=== PATIENT | male | born 1990 | race Caucasian/White ===

== ENCOUNTER 2020-07-24 12:06 | Inpatient (IN) | payer MEDICAID, OTHER ==
[~2020-07-24] VITALS: Ht 177.8 cm; Wt 65.8 kg
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
[2020-07-24] MEDS ORDERED: LIDOCAINE-MPF 1%, 5ML ONE (12:29)
[2020-07-24] MEDS ORDERED: LORazepam 1MG TABLET PO ONE (12:30)
[2020-07-24] MEDS ORDERED: LIDOCAINE 1%, 10ML INFIL ONE (12:30)
[2020-07-24] MEDS ORDERED: DIPH,PERTUSS(ACELL),TET VAC/PF 0.5 ML IM-VACC ONE ×2 (12:30→12:31)
[2020-07-24] MEDS ORDERED: LORazepam 1MG TABLET ONE (12:30)
--- NOTE | 2020-07-24 13:05 | NUR ---
PT BACK FROM CT
--- NOTE | 2020-07-24 13:14 | NUR ---
ERPA AT BEDSIDE FOR SUTURES
[2020-07-24] MEDS ORDERED: SODIUM CHLORIDE 0.9% 1,000ML IVBOLUS ONE (13:30)
[2020-07-24] MEDS ORDERED: MORPHINE SULFATE 4 MG/ML, 1ML IVPush PRN (13:30)
[2020-07-24] MEDS ORDERED: PLEASE ENTER ALLERGIES MC SCH (13:30)
[2020-07-24] MEDS ORDERED: ONDANSETRON 2MG/ML, 2ML IVPush ONE (13:30)
[2020-07-24] MEDS ORDERED: ONDANSETRON 2MG/ML, 2ML ONE (13:31)
[2020-07-24] MEDS ORDERED: MORPHINE SULFATE 4 MG/ML, 1ML ONE (13:32)
--- NOTE | 2020-07-24 13:32 | NUR ---
HOLD ON SUTURES UNTIL DR ULLOA TO SEE PT
--- NOTE | 2020-07-24 13:58 | NUR ---
PT MEDICATED PER ORDER, TOLERATED WELL. FLUIDS INFUSING, LAW ENFORCEMENT AT BEDSIDE, SAFETY PRECAUTIONS IN PLACE.
--- NOTE | 2020-07-24 14:21 | NUR ---
XR AT BEDSIDE
[2020-07-24 14:32] LABS: BASOPHILS % (AUTO) 0 % (0-1); EOSINOPHILS % (AUTO) 0 % (1-7); LYMPHOCYTES % (AUTO) 8 % (22-44); MEAN CORPUSCULAR HEMOGLOBIN 31.4 pg (27.5-34.5); MEAN CORPUSCULAR HGB CONC 33.6 g/dL (33.2-36.2); MEAN PLATELET VOLUME 8.5 fL (7.4-10.4); MONOCYTES % (AUTO) 7 % (2-9); NEUTROPHILS % (AUTO) 86 % (42-75); PLATELET COUNT 213 x10^3/uL (130-400); RED BLOOD COUNT 4.73 x10^6/uL (4.38-5.82); RED CELL DISTRIBUTION WIDTH 14.8 % (9.4-14.8)
[2020-07-24 14:39] LABS: ALBUMIN 3.8 g/dL (3.4-5.0); ANION GAP 9 mmol/L (5-15); CALCIUM 8.8 mg/dL (8.5-10.1); CHLORIDE 105 mmol/L (98-107)
[2020-07-24 14:43] LABS: ALANINE AMINOTRANSFERASE 41 U/L (12-78); ALKALINE PHOSPHATASE 64 U/L (45-117); BILIRUBIN,TOTAL 0.3 mg/dL (0.2-1.0); CREATININE 0.71 mg/dL (0.7-1.3); TOTAL PROTEIN 7.1 g/dL (6.4-8.2)
--- NOTE | 2020-07-24 15:02 | NUR ---
MD Acosta at bedside to see pt
--- NOTE | 2020-07-24 15:21 | NUR ---
ARTEMIO AT BEDSIDE FOR EVAL AND TP DISCUSS POC
[2020-07-24] MEDS ORDERED: FLUO20CA23 PO (16:17)
[2020-07-24] MEDS ORDERED: MV-M1TAB16 PO (16:17)
[2020-07-24] MEDS ORDERED: MULT-658 PO (16:17)
[2020-07-24] MEDS ORDERED: QUET100T PO (16:17)
[2020-07-24] MEDS ORDERED: RISP2TAB11 PO (16:17)
[2020-07-24] MEDS ORDERED: HYDR25CA94 PO (16:17)
[2020-07-24] MEDS ORDERED: POLYETHYLENE GLYCOL 17 GM PACKET PO PRN (16:30)
[2020-07-24] MEDS ORDERED: morphine SULFATE 10 MG/ML, 1ML IVPush PRN (16:30)
[2020-07-24] MEDS ORDERED: ACETAMINOPHEN 325 MG TABLET PO PRN (16:30)
[2020-07-24] MEDS ORDERED: ONDANSETRON 2MG/ML, 2ML IVPush PRN (16:30)
[2020-07-24] MEDS ORDERED: AMPICILLIN/SULBACTAM 3 GM in SODIUM CHLORIDE 0.9% 100 ML IV ONE (16:30)
[2020-07-24 17:31] LABS: MICROSCOPIC INDICATED
[2020-07-24 17:33] LABS: AMPHETAMINE SCREEN, URINE Negative (Negative); BARBITURATE SCREEN, URINE Negative (Negative); BENZODIAZEPINE SCREEN, URINE Negative (Negative); CANNABINOID SCREEN, URINE Negative (Negative); COCAINE SCREEN, URINE Negative (Negative); METHADONE SCREEN, URINE Negative (Negative); OPIATE SCREEN, URINE Positive (Negative)
--- NOTE | 2020-07-24 17:38 | NUR ---
REPORT GIVEN TO RECEIVING TETO WHITESIDE
[2020-07-24] MEDS: CHLORHEXIDINE 15 ML UDC MM SCH (17:41)
[2020-07-24 17:54] VITALS: BP 107/71
[2020-07-24] MEDS: LACTATED RINGERS 1,000 ML IV SCH (17:57)
[2020-07-24 19:43] VITALS: BP 103/70
[2020-07-24] MEDS: RISPERIDONE 2 MG TABLET PO SCH (21:00)
[2020-07-24] MEDS: OXYcodone IR 5MG TABLET PO PRN (21:10)
[2020-07-25 00:29] VITALS: BP 107/69
[2020-07-25] MEDS: LACTATED RINGERS 1,000 ML IV SCH ×2 (03:25→12:30)
[2020-07-25 05:30] LABS: ALBUMIN 3.2 g/dL (3.4-5.0); CHLORIDE 108 mmol/L (98-107)
[2020-07-25 05:34] LABS: BASOPHILS % (AUTO) 0 % (0-1); EOSINOPHILS % (AUTO) 1 % (1-7); LYMPHOCYTES % (AUTO) 22 % (22-44); MEAN CORPUSCULAR HEMOGLOBIN 31.6 pg (27.5-34.5); MEAN CORPUSCULAR HGB CONC 33.9 g/dL (33.2-36.2); MEAN PLATELET VOLUME 8.9 fL (7.4-10.4); MONOCYTES % (AUTO) 10 % (2-9); NEUTROPHILS % (AUTO) 67 % (42-75); PLATELET COUNT 214 x10^3/uL (130-400); RED BLOOD COUNT 4.36 x10^6/uL (4.38-5.82); RED CELL DISTRIBUTION WIDTH 14.8 % (9.4-14.8)
[2020-07-25 05:36] LABS: ALANINE AMINOTRANSFERASE 30 U/L (12-78); ALKALINE PHOSPHATASE 58 U/L (45-117); ANION GAP 7 mmol/L (5-15); BILIRUBIN,TOTAL 0.6 mg/dL (0.2-1.0); CREATININE 0.69 mg/dL (0.7-1.3); TOTAL PROTEIN 6.3 g/dL (6.4-8.2)
[2020-07-25 06:28] VITALS: BP 105/64
[2020-07-25] MEDS: HYDROXYZINE PAMOATE 25MG CAP PO SCH (07:06)
[2020-07-25] MEDS: RISPERIDONE 2 MG TABLET PO SCH ×2 (07:06→23:29)
[2020-07-25] MEDS: SENNA/DOCUSATE TABLET PO SCH (07:06)
[2020-07-25] MEDS: FLUOXETINE HCL 20 MG CAPSULE PO SCH (07:06)
[2020-07-25] MEDS: MULTIVITAMIN 1 TABLET PO SCH (07:06)
[2020-07-25] MEDS: QUETIAPINE 100MG TABLET PO SCH (07:06)
[2020-07-25] MEDS: CHLORHEXIDINE 15 ML UDC MM SCH ×2 (07:30→18:00)
[2020-07-25] MEDS ORDERED: [UNRECOGNIZED DRUG - OTHER] PO SCH (09:00)
[2020-07-25] MEDS ORDERED: MV MN PO SCH (09:00)
[2020-07-25] MEDS ORDERED: HERBAL CMPLX PO SCH (09:00)
[2020-07-25] MEDS ORDERED: IRON PO SCH (09:00)
[2020-07-25 11:39] VITALS: BP 100/68
[2020-07-25] MEDS: OXYcodone IR 5MG TABLET PO PRN (12:51)
[2020-07-25] MEDS ORDERED: MIDAZOLAM 1 MG/ML, 2ML ONE (16:58)
[2020-07-25] MEDS ORDERED: FENTANYL PF 250 MCG/5ML ONE (16:59)
[2020-07-25] MEDS ORDERED: LIDOCAINE/PF 1%, 30ML ONE (17:00)
[2020-07-25] MEDS ORDERED: EPINEPHRINE 1 MG/ML, 1ML ONE (17:00)
[2020-07-25] MEDS ORDERED: BALANCED SALT OPHTH IRRIG SOLN 18ML ONE (17:00)
[2020-07-25] MEDS ORDERED: OXYMETAZOLINE NASAL SPRAY 0.05%,30ML ONE (17:00)
[2020-07-25] MEDS ORDERED: OXYcodone 5 MG/5 ML ORAL.SOL UDC PO PRN (18:00)
[2020-07-25] MEDS ORDERED: LABETALOL 5MG/ML, 20ML IV PRN (18:00)
[2020-07-25] MEDS ORDERED: DIPHENHYDRAMINE 50 MG/ML, 1ML IVPush PRN (18:00)
[2020-07-25] MEDS ORDERED: DIAZEPAM 5 MG/ML, 2ML IVPush PRN (18:00)
[2020-07-25] MEDS ORDERED: hydrALAzine 20 MG/ML, 1ML IV PRN (18:00)
[2020-07-25] MEDS ORDERED: ONDANSETRON 2MG/ML, 2ML IVPush PRN (18:00)
[2020-07-25] MEDS ORDERED: ACETAMINOPHEN 325 MG TABLET PO PRN (18:00)
[2020-07-25] MEDS ORDERED: ROCURONIUM 10MG/ML,5ML ONE ×2 (19:03)
[2020-07-25] MEDS ORDERED: DEXAMETHASONE 4 MG/ML, 1ML ONE ×2 (19:03)
[2020-07-25] MEDS ORDERED: CEFAZOLIN 1,000 MG ONE ×2 (19:03)
[2020-07-25] MEDS ORDERED: ONDANSETRON 2MG/ML, 2ML ONE (19:03)
[2020-07-25] MEDS ORDERED: LIDOCAINE-MPF 2% ,5ML ONE (19:03)
[2020-07-25] MEDS ORDERED: PROPOFOL 10 MG/ML, 20ML ONE (19:03)
[2020-07-25] MEDS ORDERED: FENTANYL PF 100 MCG/2ML ONE ×3 (19:43→22:15)
[2020-07-25] MEDS: FENTANYL PF 100 MCG/2ML IV PRN ×5 (21:18→22:44)
[2020-07-25] MEDS ORDERED: HYDROmorphone 1 MG/ML, 1ML INJ ONE ×2 (21:46→22:15)
[2020-07-25] MEDS ORDERED: OXYcodone 5 MG/5 ML ORAL.SOL UDC ONE (22:00)
[2020-07-25] MEDS: HYDROmorphone 1 MG/ML, 1ML INJ IVPush PRN ×4 (22:03→22:34)
[2020-07-25] MEDS ORDERED: RISPERIDONE 1 MG TABLET ONE (22:49)
[2020-07-25 22:59] VITALS: BP 114/76
[2020-07-26 01:44] VITALS: BP 123/75
[2020-07-26] MEDS ORDERED: MORPHINE SULFATE 4 MG/ML, 1ML IVPush PRN (03:00)
[2020-07-26] MEDS: AMPICILLIN/SULBACTAM 3 GM in SODIUM CHLORIDE 0.9% 100 ML IV SCH ×4 (03:48→22:04)
[2020-07-26] MEDS: LACTATED RINGERS 1,000 ML IV SCH ×2 (06:11→21:17)
[2020-07-26 06:51] VITALS: BP 112/69
[2020-07-26] MEDS: SENNA/DOCUSATE TABLET PO SCH (09:00)
[2020-07-26] MEDS: HYDROXYZINE PAMOATE 25MG CAP PO SCH (09:00)
[2020-07-26] MEDS: CHLORHEXIDINE 15 ML UDC MM SCH ×2 (09:13→17:21)
[2020-07-26] MEDS: QUETIAPINE 100MG TABLET PO SCH (09:14)
[2020-07-26] MEDS: FLUOXETINE HCL 20 MG CAPSULE PO SCH (09:14)
[2020-07-26] MEDS: MULTIVITAMIN 1 TABLET PO SCH (09:14)
[2020-07-26] MEDS: RISPERIDONE 2 MG TABLET PO SCH ×2 (09:14→21:17)
[2020-07-26] MEDS: OXYcodone IR 5MG TABLET PO PRN ×3 (09:15→21:17)
[2020-07-26 12:25] VITALS: BP 109/77
[2020-07-26] MEDS: ACETAMINOPHEN 500 MG TABLET PO PRN ×2 (12:47→17:21)
[2020-07-26 19:40] VITALS: BP 106/67
[2020-07-27] MEDS ORDERED: CHLORHEXIDINE MC SCH (00:30)
[2020-07-27 01:30] VITALS: BP 109/72
[2020-07-27] MEDS: OXYcodone IR 5MG TABLET PO PRN ×2 (03:21→09:13)
[2020-07-27] MEDS: AMPICILLIN/SULBACTAM 3 GM in SODIUM CHLORIDE 0.9% 100 ML IV SCH ×4 (04:12→22:03)
[2020-07-27 05:17] LABS: BASOPHILS % (AUTO) 0 % (0-1); EOSINOPHILS % (AUTO) 1 % (1-7); LYMPHOCYTES % (AUTO) 16 % (22-44); MEAN CORPUSCULAR HEMOGLOBIN 32.1 pg (27.5-34.5); MEAN CORPUSCULAR HGB CONC 34.8 g/dL (33.2-36.2); MEAN PLATELET VOLUME 8.7 fL (7.4-10.4); MONOCYTES % (AUTO) 10 % (2-9); NEUTROPHILS % (AUTO) 73 % (42-75); PLATELET COUNT 184 x10^3/uL (130-400); RED BLOOD COUNT 4.37 x10^6/uL (4.38-5.82); RED CELL DISTRIBUTION WIDTH 14.1 % (9.4-14.8)
[2020-07-27 05:31] LABS: CHLORIDE 105 mmol/L (98-107)
[2020-07-27 05:53] LABS: ALANINE AMINOTRANSFERASE 22 U/L (12-78); ALKALINE PHOSPHATASE 64 U/L (45-117); ANION GAP 6 mmol/L (5-15); BILIRUBIN,TOTAL 0.6 mg/dL (0.2-1.0); CALCIUM 8.4 mg/dL (8.5-10.1); CREATININE 0.65 mg/dL (0.7-1.3); TOTAL PROTEIN 6.6 g/dL (6.4-8.2)
[2020-07-27 06:50] VITALS: BP 125/78
[2020-07-27] MEDS: CHLORHEXIDINE 15 ML UDC MM SCH ×2 (09:12→17:45)
[2020-07-27] MEDS: QUETIAPINE 100MG TABLET PO SCH (09:12)
[2020-07-27] MEDS: FLUOXETINE HCL 20 MG CAPSULE PO SCH (09:12)
[2020-07-27] MEDS: MULTIVITAMIN 1 TABLET PO SCH (09:12)
[2020-07-27] MEDS: SENNA/DOCUSATE TABLET PO SCH (09:13)
[2020-07-27] MEDS: RISPERIDONE 2 MG TABLET PO SCH ×2 (09:13→21:00)
[2020-07-27] MEDS: LACTATED RINGERS 1,000 ML IV SCH (09:14)
[2020-07-27] MEDS: HYDROXYZINE PAMOATE 25MG CAP PO SCH (09:14)
[2020-07-27 12:59] VITALS: BP 107/72
[2020-07-27] MEDS: ACETAMINOPHEN 325 MG TABLET PO SCH ×2 (15:31→19:47)
[2020-07-27] MEDS: POLYETHYLENE GLYCOL 17 GM PACKET PO SCH ×2 (17:45→22:04)
[2020-07-27 19:05] VITALS: BP 109/68
[2020-07-27] MEDS ORDERED: RISPERIDONE 1 MG TABLET ONE (21:49)
[2020-07-28] MEDS: ACETAMINOPHEN 325 MG TABLET PO SCH ×6 (00:06→20:07)
[2020-07-28] MEDS: NAPROXEN 500 MG TABLET PO SCH ×3 (00:06→20:07)
[2020-07-28 00:24] VITALS: BP 104/70
[2020-07-28] MEDS: AMPICILLIN/SULBACTAM 3 GM in SODIUM CHLORIDE 0.9% 100 ML IV SCH ×4 (03:53→22:00)
[2020-07-28 06:34] VITALS: BP 91/59
[2020-07-28] MEDS: MULTIVITAMIN 1 TABLET PO SCH (08:21)
[2020-07-28] MEDS: QUETIAPINE 100MG TABLET PO SCH (08:21)
[2020-07-28] MEDS: SENNA/DOCUSATE TABLET PO SCH (08:21)
[2020-07-28] MEDS: RISPERIDONE 2 MG TABLET PO SCH ×2 (08:21→20:08)
[2020-07-28] MEDS: POLYETHYLENE GLYCOL 17 GM PACKET PO SCH ×3 (08:22→20:07)
[2020-07-28] MEDS: CHLORHEXIDINE 15 ML UDC MM SCH ×2 (08:22→16:38)
[2020-07-28] MEDS: FLUOXETINE HCL 20 MG CAPSULE PO SCH (08:22)
[2020-07-28] MEDS: HYDROXYZINE PAMOATE 25MG CAP PO SCH (08:23)
[2020-07-28 13:49] VITALS: BP 93/54
[2020-07-28] MEDS ORDERED: RISPERIDONE 1 MG TABLET ONE (19:58)
[2020-07-28 20:12] VITALS: BP 101/66
[2020-07-29] MEDS: ACETAMINOPHEN 325 MG TABLET PO SCH ×4 (00:30→12:30)
[2020-07-29 03:25] VITALS: BP 92/54
[2020-07-29] MEDS: AMPICILLIN/SULBACTAM 3 GM in SODIUM CHLORIDE 0.9% 100 ML IV SCH ×2 (03:44→09:44)
[2020-07-29 06:45] VITALS: BP 91/50
[2020-07-29] MEDS: QUETIAPINE 100MG TABLET PO SCH (08:06)
[2020-07-29] MEDS: FLUOXETINE HCL 20 MG CAPSULE PO SCH (08:06)
[2020-07-29] MEDS: SENNA/DOCUSATE TABLET PO SCH (08:06)
[2020-07-29] MEDS: POLYETHYLENE GLYCOL 17 GM PACKET PO SCH (08:07)
[2020-07-29] MEDS: NAPROXEN 500 MG TABLET PO SCH (08:07)
[2020-07-29] MEDS: CHLORHEXIDINE 15 ML UDC MM SCH (08:07)
[2020-07-29] MEDS: HYDROXYZINE PAMOATE 25MG CAP PO SCH (08:07)
[2020-07-29] MEDS: RISPERIDONE 2 MG TABLET PO SCH (08:07)
[2020-07-29] MEDS: MULTIVITAMIN 1 TABLET PO SCH (08:07)
[2020-07-29] MEDS ORDERED: AMOX1TAB64 PO (11:46)
[2020-07-29] MEDS ORDERED: NAPR-856 PO (11:46)
[2020-07-29] MEDS ORDERED: ACET-1600 PO (11:46)
[2020-07-29] MEDS ORDERED: CHLO473M MM (11:46)
[2020-07-29 13:05] VITALS: BP 97/56
== END 2020-07-29 14:39 | disposition home or self-care (01) | DRG 141 ==
LOC: ED 12:33 → EDIP 15:25 → SUATTDRO 16:18 → 4WST 18:00
PROVIDERS: ADMIT Internal Medicine; ATTEND Internal Medicine
PROC: 0HQ1XZZ Repair Face Skin, External Approach (ICD-10-PCS; 2020-07-24)
PROC: 0NSR04Z Reposition Maxilla with Internal Fixation Device, Open Approach (ICD-10-PCS; 2020-07-25)
PROC: 0NST04Z Reposition Right Mandible with Internal Fixation Device, Open Approach (ICD-10-PCS; principal; 2020-07-25 16:30)
DX: S02.611A Fracture of condylar process of right mandible, initial encounter for closed fracture (principal); S02.42XA Fracture of alveolus of maxilla, initial encounter for closed fracture; F15.20 Other stimulant dependence, uncomplicated; S02.612A Fracture of condylar process of left mandible, initial encounter for closed fracture; S02.621A Fracture of subcondylar process of right mandible, initial encounter for closed fracture; T40.605A Adverse effect of unspecified narcotics, initial encounter; S02.66XB Fracture of symphysis of mandible, initial encounter for open fracture; S02.2XXA Fracture of nasal bones, initial encounter for closed fracture; S02.5XXA Fracture of tooth (traumatic), initial encounter for closed fracture; Z59.0 Homelessness; F17.211 Nicotine dependence, cigarettes, in remission; F12.90 Cannabis use, unspecified, uncomplicated; F20.9 Schizophrenia, unspecified; K59.03 Drug induced constipation; F31.9 Bipolar disorder, unspecified; Z91.5 Personal history of self-harm; G89.29 Other chronic pain; M54.9 Dorsalgia, unspecified; W18.30XA Fall on same level, unspecified, initial encounter; Y93.89 Activity, other specified; Y92.89 Other specified places as the place of occurrence of the external cause; F10.20 Alcohol dependence, uncomplicated; Z20.822 Contact with and (suspected) exposure to COVID-19
CPT/HCPCS: 12051; 36415; 72020; 96361; 96365; 96375; 99285; J3490; 70450; 70486; 71045; 80053; 80307; 81001; 83735; 84100; 85025; 85379; 87635; 90471; 90715; 93005; 93306; 93356; C1713; G0378; J0171; J0295; J0690; J1100; J1170; J2250; J2405; J2704; J3010; J2270; J7030; J7120